=== PATIENT | male | born 1950 | race Caucasian/White ===

== ENCOUNTER 2018-04-24 20:00 | Outpatient (CLI) ==
[2016-01-11 08:35] VITALS: BMI 27.6
== END 2018-04-24 20:25 | disposition short-term general hospital (02) ==
LOC: AMBL 20:00
PROVIDERS: ATTEND Internal Medicine Geriatric Medicine
DX: S61.412A Laceration without foreign body of left hand, initial encounter (principal); S99.911A Unspecified injury of right ankle, initial encounter; S99.921A Unspecified injury of right foot, initial encounter; M54.2 Cervicalgia; M79.89 Other specified soft tissue disorders; R11.0 Nausea; R42 Dizziness and giddiness; R61 Generalized hyperhidrosis; W11.XXXA Fall on and from ladder, initial encounter